=== PATIENT | male | born 2005 | race Hispanic/Latino ===

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

== ENCOUNTER 2024-07-11 02:45 | Emergency (ER) | payer MEDICAID, OTHER ==
[~2024-07-11] VITALS: Ht 170.2 cm; Wt 68.0 kg
--- NOTE | 2024-07-11 03:20 | ERN ---
ED Note History of Present Illness Stated Complaint: C/O PAIN TO EYES Chief Complaint: Eye Problems Time Seen by MD: 02:56 Dictation: This is a 18-year-old male who came into the emergency room stating that when he woke up from sleep he felt like his eyes were swollen and burning. 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 Patient wears safety gear and denies any exposure to khan due to welding. Reports chronic seasonal allergies and rhinitis as well as crusty eyes. No watering of the eyes, no redness of the eyes. 96.7 pulse 65 respirations 20 blood pressure 115/74. Allergies: Coded Allergies: No Known Drug Allergies (Unverified Allergy, Unknown, 09/20/23) Past Medical History Past Medical History: No Pertinent History Surgical History: None Surgical History Other: I&D Family History: Negative RN Note Reviewed/Agreed w/PFSH: Yes Review of System Dictation Constitutional: Negative for fever,chills, and weight loss Eyes: Negative for injury, pain,redness, and discharge. Mostly complains of swelling of the eyelids and burning. ENT: Negative for injury,pain or swelling Cardiovascular: Negative for chest pain, palpitations, and edema Respiratory: Negative for shortness of breath, cough, and wheezing, Abdomen/GI: Negative for abdominal pain, nausea, vomiting, diarrhea, and constipation Back: Negative for injury and pain : Negative for injury, bleeding and discharge MS/Extremity: Negative for injury and deformity Skin: Negative for rash, and discoloration Neuro: Negative for headache, weakness, numbness, tingling, and seizure Psych: Negative for suicide ideation, homicidal ideation, and hallucinations Initial Vital Sign VS Vital Signs Date Time Temp Pulse Resp B/P (MAP) Pulse Ox O2 Delivery O2 Flow Rate FiO2 07/11/24 02:47 96.6 65 20 115/74 100 Room Air 07/11/24 03:46 0 21 Physical Exam Dictation General: awake, alert, NAD Head/Face: Normocephalic, atraumatic Eyes: PERRL, EOMI, vision at baseline very mild periorbital swelling if any. No evidence of any obvious injury to the globe. No pain or tenderness. No foreign body in the eye. ENT: oral cavity clear, TMs clear, no signs of infection Neck: Trachea midline, supple, no nuchal rigidity Cardiovascular: RRR, normal S1/S2, No MRGs, no JVD Respiratory: CTAB, no respiratory distress, No rales or wheezes Abdomen: Soft, non-tender, non-distended, normal bowel sounds, no guarding or rebound. Skin: Warm, dry, normal turgor, no rash MS/Extremity: Pulses equal, no cyanosis, neurovascular intact, FROM Neuro: COAx4, GCS 15, strength 5/5, CN 2-12 intact, normal cerebellar exam, nor mal gait, Psych: Normal behavior, mood, and affect normal Extremities-trace edema without any palpable cords, Homans sign is negative Results (Laboratory/Radiology) Labs Reviewed?: Yes ED Course ED Course Orders Procedure Category Date Status Time Cetirizine Hcl 5 Mg PHA 07/11/24 Complete Tablet (Zyrtec 5 Mg 03:30 Tobramycin PHA 07/11/24 Complete Sulf/Dexamethasone 03:30 Current Medications Medications (Trade) Dose Ordered Sig/Beth Route PRN Reason Start Time Stop Time Status Last Admin Dose Admin Cetirizine HCl (ZYRtec 5 MG TABLET) 5 mg ONCE ONCE PO 07/11/24 03:30 07/11/24 03:31 DC 07/11/24 03:41 Tobramycin/ Dexamethasone (TobraDEX EYE DROPS) 1 DROP ONCE ONCE OD 07/11/24 03:30 07/11/24 03:31 DC 07/11/24 03:42 Vital Signs Date Time Temp Pulse Resp B/P (MAP) Pulse Ox O2 Delivery O2 Flow Rate FiO2 07/11/24 03:46 97.3 68 16 112/62 100 Room Air* 0 21 07/11/24 02:47 96.6 65 20 115/74 100 Room Air We will administer medications according to the patient's complaint. Once the results are available, will review and personally interpreted the labs to rule out any acute life-threatening emergency the trach require immediate intervention and treatment. I will then re-evaluate the patient after treatment and diagnostic exams have return to determine whether the patient requires any further testing, can safely be discharged home or need further admission to hospital for additional treatment and evaluation. I had a long discussion with the patient that all him he may have to do his warm compresses, antihistamine or inhaled nasal spray. I have reassured him that I do not see any active injury to the eye. With no headaches visual changes, he may also use a humidifier . 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 Risk of complication and/or morbidity or mortality of patient management: None Medications-Per medication reconciliation Need for hospitalization: Patient does not meet criteria for hospitalization. Need for emergency major/minor surgery: No There are no social concerns with this patient. Prescription drug management Prescriptions will include symptomatic care Patient's prior external medical records from other ER visits were reviewed by me as indicated. Prior testing and results from previous visits were reviewed. Prior tests were taken into account with medical decision making and resource utilization, independent historian/historians were used to obtain complete medical history. I independently interpreted the test that were performed, results were reviewed by me and considered findings on radiology if ordered. Medical management and examination interpretation discussions were had by me with other qualified healthcare professionals as indicated for the patient's care. Problem List Problem List: (1) Burning sensation of eye (2) Chronic allergic conjunctivitis DX & DISP Disposition: Discharge Departure Impression: Primary Impression: Burning sensation of eye Additional Impression: Chronic allergic conjunctivitis Condition: Stable Additional Instructions: Patient and the caregiver have been informed of all the diagnostic tests and the imaging conducted during the today's visit to the emergency room and has verbalized understanding of the results I have personally reviewed and interpreted all diagnostic exams performed here in the ER today as well as the vital signs documented by the nursing staff. The patient is now being discharged to home and should follow up with the primary care physician or the specialist as directed by the ER staff. Follow-up with primary care provider in 1 to 2 days. Take medications as directed here in the emergency room. Okay to continue home medications unless otherwise discussed during your visit in the emergency room today. Return to your nearest emergency room if symptoms worsen or if there is no improvement. Call 911 if you need immediate assistance. Take Tylenol or Motrin [id number] as needed and if no contraindications are present. Increase oral hydration. A wound culture or urine culture was ordered here in the emergency room department please follow-up with primary care provider and advise them to get repeat ports from our facility. If you had any Silver wrap/splints that were applied here, please do not remove them until you see your primary care or specialty. Referrals: SELF,REFERRAL (PCP) LESLIE GUERRA MD Jul 11, 2024 03:20
[2024-07-11] MEDS: ceTIRIzine HCL 5 MG TABLET PO ONE (03:41)
[2024-07-11] MEDS: TobRAMYCin/DEXAmethASONE OPTH SUSP 2.5 ML BOT OD ONE (03:42)
[2024-07-11 03:46] VITALS: BP 112/62; PULSE 68; RESP 16; TEMP 97.4; O2SAT 100
== END 2024-07-11 03:51 | disposition home or self-care (01) ==
LOC: EDH 02:45
DX: H10.10 Acute atopic conjunctivitis, unspecified eye (principal)
CPT/HCPCS: 99283